=== PATIENT | female | born 1990 | race Caucasian/White ===

== ENCOUNTER 2016-10-12 23:23 | Emergency (ER) | payer BC ==
[~2016-10-12] VITALS: Ht 167.6 cm; Wt 72.7 kg
[~2016-10-12 23:23] MED LIST: UNABLE
[2016-10-12 23:30] VITALS: TEMP 97.9
[2016-10-13 04:27] VITALS: BP 101/54; PULSE 88
== END 2016-10-13 05:15 | disposition home or self-care (01) ==
LOC: COL.ER 23:23
DX: F10.120 Alcohol abuse with intoxication, uncomplicated (principal); Y90.8 Blood alcohol level of 240 mg/100 ml or more
CPT/HCPCS: G0463; J2405; J7030